=== PATIENT | female | born 1995 | race Caucasian/White ===

== ENCOUNTER 2016-08-15 01:15 | Emergency (ER) | payer OTHER ==
[~2016-08-15 01:15] MED LIST: AMPH10CA3 PO; BUPR-79 PO
[2016-08-15 01:26] VITALS: TEMP 36
[2016-08-15 01:54] LABS: BLOOD UREA NITROGEN 5 mg/dl (7-18); BUN/CREATININE RATIO 9.1 (10-20); CALCIUM 8.3 mg/dl (8.5-10.1); CARBON DIOXIDE 26 mmol/L (21-32); CHLORIDE 109 mmol/L (98-107); GLUCOSE 116 mg/dl (70-99); POTASSIUM 3.8 mmol/L (3.5-5.1); SODIUM 144 mmol/L (136-145)
[2016-08-15] MEDS ORDERED: AMPH10CA3 PO (10:26)
--- NOTE | 2016-08-15 11:08 | EMERGENCY ROOM VISIT NOTE ---
ED Visit Note This patient's care was transferred to md by Laura Mcgregor PA-C for change of shift. This is a 20-year-old female who presented to the emergency department with a medical alcohol level of 410 at 1:30 AM. Patient was placed on monitor and in prone position. The patient had no adverse events while in the emergency department. The patient was aroused and communicative at 10:45 AM. Secondary assessment was performed to show no other acute injuries or complaints of other injuries from this incident. The patient's nurse was able to speak with her regarding her current situation. The patient reports that she just returned from [facility] [place]. The patient reports that she did have unprotected sex with many men while there. She does report having alcohol dependence as well. The patient was provided [facility] I did explain to the patient that her alcohol level was extremely high. The patient was given discharge information for the [facility]. The patient was instructed to rest and remain well hydrated today, avoiding any further alcohol. The patient was discharged with a sober friend, and voiced understanding of all discharge instructions. ASSESSMENT: Ethyl alcohol overdose
[2016-08-15 13:32] VITALS: BP 103/64; PULSE 109; O2SAT 100
--- NOTE | 2016-08-15 21:29 | EMERGENCY ROOM VISIT NOTE ---
History First contact with patient: 01:18 Chief Complaint: ALCOHOL OVERDOSE Stated Complaint: UNRESPONSIVE/ POSSIBLE ALCOHOL OVERDOSE Nursing Triage Summary: found by the [place] in [address]. unresponsive to verbal and tactile stimuli. smells of alcohol. +Emesis per EMS History of Present Illness The patient is a 20 year old female who presents to the Emergency Room with complaints of alcohol overdose. Patient was found passed out in the days and hallway with vomit everywhere. Patient is passed out and unable to obtain history. Review of Systems Unable to obtain secondary to altered mental status from alcohol intoxication Past Medical/Surgical History Unable to obtain secondary to altered mental status from alcohol intoxication Social History Smoking Status: Unknown if Ever Smoked Current/Historical Medications Scheduled Amphetamine-Dextroamphetamine 10MG (Adderall Xr 10MG), 1 CAP PO BID Allergies Uncoded Allergies: LATEX ALLERGY (Allergy, Unknown, localized rash, 08/15/16) Physical Exam Vital Signs Date Time Temp Pulse Resp B/P Pulse Ox O2 Delivery O2 Flow Rate FiO2 08/15/16 13:32 109 18 103/64 100 08/15/16 09:44 111 16 99/74 93 Room Air 08/15/16 09:06 88 08/15/16 09:00 91 16 89/76 94 Room Air 08/15/16 07:05 102 16 100/70 96 Room Air 08/15/16 06:28 91 08/15/16 06:06 91 15 94 Room Air 08/15/16 06:01 105/61 08/15/16 05:36 104 14 95 Room Air 08/15/16 05:31 96/62 08/15/16 05:06 92 20 96 Room Air 08/15/16 05:01 95/58 08/15/16 04:06 113 93 Room Air 08/15/16 04:01 107/88 08/15/16 03:36 98 16 93 Room Air 08/15/16 03:31 106/69 08/15/16 03:06 94 19 94 Room Air 08/15/16 03:01 107/68 08/15/16 02:45 93 17 94 Room Air 08/15/16 02:31 103/68 08/15/16 02:15 92 17 94 Room Air 08/15/16 02:01 105/66 08/15/16 01:45 90 20 93 Room Air 08/15/16 01:31 Room Air 08/15/16 01:31 Room Air 08/15/16 01:31 109/83 08/15/16 01:29 106 08/15/16 01:26 36.0 100 18 127/87 95 Room Air 08/15/16 01:23 127/87 Physical Exam PHYSICAL EXAM: VITALS: Vitals are noted on the nurse's note and reviewed by myself. Vital signs stable. GENERAL: White female covered in vomit responsive to sternal rub with EtOH odor , in no acute distress, nondiaphoretic, well-developed well-nourished. The patient is visibly intoxicated. SKIN: The skin was without obvious lacerations, abrasions, or rashes. There is no tenting of the skin. Capillary reflex less than 2 seconds. HEENT: Normocephalic, atraumatic. PERRLA. EOMI. Conjunctiva with mild injection without icterus. Tympanic membranes without erythema or effusion bilaterally no hemotympanum. External auditory canals are clear. Nares patent bilaterally. No epistaxis. Oropharynx without erythema or exudate. Uvula midline. Oral mucosal moist. No lymphadenopathy. Neck is supple without cervical spine tenderness. HEART: Regular rate and rhythm without murmurs gallops or rubs. Peripheral pulses 2+. LUNGS: Clear to auscultation bilaterally without wheezes, rales or rhonchi. ABDOMEN: Positive bowel sounds x 4. Normal tympanic percussion. Soft, nontender, without masses or organomegaly. MUSCULOSKELETAL: Gross motor function of the upper and lower extremities intact. The patient has a staggering gait. NEUROLOGIC: The patient is visibly intoxicated. Once they were more sober they were alert and oriented to person place and time. Medical Decision & Procedures Laboratory Results 08/15/16 01:30 Test 08/15/16 01:30 Anion Gap 9.0 mmol/L (3-11) Estimated GFR () > 150.0 Estimated GFR (Non- 139.3 BUN/Creatinine Ratio 9.1 (10-20) Calcium Level 8.3 mg/dl (8.5-10.1) Ethyl Alcohol mg/dL 410.0 mg/dl (0-3) ED Course Prior records/ancillary studies reviewed. Triage Nursing notes reviewed. Additional history obtained from EMS. The patient's history was concerning for altered mental status and a possible alcohol overdose. Differential diagnosis: Etiologies such as alcohol intoxication, toxicologic, infection, hypoglycemia, electrolyte abnormalities, cardiac sources, intracerebral event, neurologic, as well as others were entertained. Physical examination: As above. The patient is clinically intoxicated. no trauma noted. ER treatment provided: Monitoring Aspiration precautions The patient was frequently reassessed. Diagnostic interpretation by me: Cardiac monitoring did not reveal any evidence of dysrhythmia. The labs reviewed. The patient's blood alcohol level was 410 mg/dL. case was signed out to MATT Smith pending patient sobering up and reevaluation in stable condition. Medical Decision As above Impression Primary Impression: Alcohol overdose Departure Information Dispostion Home / Self-Care Condition GOOD Referrals No Doctor, Assigned (PCP) Patient Instructions My [facility] Additional Instructions Keep well-hydrated. Tylenol every 6 hours as needed for pain (Maximum 3000 mg Tylenol in 24 hr period). Follow up with family doctor and/or health services as needed. No driving for the next 24 hours. Recommend no alcohol for the next 48 hours and avoid binge drinking in the future. Return to ER sooner for chest pain, abdominal pain, worsening signs or symptoms or as needed. Problem Qualifiers Primary Impression: Alcohol overdose Encounter type: initial encounter Injury intent: accidental or unintentional Qualified Codes: T51.91XA - Toxic effect of unspecified alcohol , accidental (unintentional), initial encounter
== END 2016-08-15 13:33 | disposition home or self-care (01) ==
LOC: MERGE 01:17 → C.EDB 01:17 → EDBD 01:17 → C.EDB 13:33
DX: T51.91XA Toxic effect of unspecified alcohol, accidental (unintentional), initial encounter (principal); X58.XXXA Exposure to other specified factors, initial encounter